=== PATIENT | female | born 1985 | race Caucasian/White ===

== ENCOUNTER 2024-04-18 10:14 | Outpatient (CLI) | payer OTHER, SELFPAY ==
[2024-04-21 15:21] LABS: HPV Source Cervix; HPV, High Risk by TMA Not Detected
== END 2024-04-18 10:15 | disposition home or self-care (01) ==
PROVIDERS: Visit Provider Physician Assistant
DX: Z12.4 Encounter for screening for malignant neoplasm of cervix (principal); Z11.51 Encounter for screening for human papillomavirus (HPV)
CPT/HCPCS: 87624; 87625; 88141; 88142